=== PATIENT | male | born 1960 | race Caucasian/White ===

== ENCOUNTER 2016-11-14 22:09 | Emergency (ER) | payer BC, MEDICAID ==
[~2016-11-14] VITALS: Ht 180.3 cm; Wt 91.2 kg
[2016-11-14 23:41] LABS: BASOPHILS # (AUTO) 0.1 10^3/uL (0.0-0.1); BASOPHILS % (AUTO) 1 % (0-10); EOSINOPHILS # (AUTO) 0.4 10^3/uL (0.0-0.3); EOSINOPHILS % (AUTO) 4 % (0-10); LYMPHOCYTES # (AUTO) 1.7 X 10^3 (1.0-4.0); LYMPHOCYTES % (AUTO) 17 % (12-44); MEAN CORPUSCULAR HEMOGLOBIN 32 PG (25-34); MEAN CORPUSCULAR HGB CONC 35 G/DL (32-36); MEAN CORPUSCULAR VOLUME 92 FL (80-99); MEAN PLATELET VOLUME 11.6 FL (7.4-10.4); MONOCYTES # (AUTO) 0.7 X 10^3 (0.0-1.0); MONOCYTES % (AUTO) 7 % (0-12); NEUTROPHILS # (AUTO) 6.9 X 10^3 (1.8-7.8); NEUTROPHILS % (AUTO) 72 % (42-75); PLATELET COUNT 169 10^3/uL (130-400); RED BLOOD COUNT 5.08 10^6/uL (4.35-5.85); RED CELL DISTRIBUTION WIDTH 13.1 % (10.0-14.5); WHITE BLOOD COUNT 9.7 10^3/uL (4.3-11.0)
[2016-11-15 00:06] LABS: ALBUMIN 4.1 GM/DL (3.2-4.5); BILIRUBIN,TOTAL 0.3 MG/DL (0.1-1.0); CALCIUM 9.4 MG/DL (8.5-10.1); CREATININE SERUM 1.39 MG/DL (0.60-1.30); POTASSIUM 3.9 MMOL/L (3.6-5.0)
[2016-11-15] MEDS ORDERED: OMEP20TA7 PO (02:24)
--- NOTE | 2016-11-15 02:24 | ED GI ---
General Chief Complaint: Abdominal/GI Problems Stated Complaint: BLOOD IN STOOL/STOMACH PAIN Nursing Triage Note: PT REPORTS HAVING BRIGHT RED BLOOD IN STOOL THAT STARTED TONIGHT. PT HAVING UPPER ABD BURNING FOR WEEKS. PT STATES HE BATTLES OFF AND ON EPIGASTRIC BURNING. DENIES ETOH USAGE NOT ON RX MEDS. USES PRN IBUPROFEN. Sepsis Screen: No Definite Risk Source of Information: Patient Exam Limitations: No Limitations Allergies and Home Medications Allergies Uncoded Allergies: PENICILLIN (Adverse Reaction, Mild, RASH, 11/14/16) Home Medications No Active Prescriptions or Reported Meds Past [id number]-Vhwpih Hx Patient Social History Alcohol Use: Past History Recreational Drug Use: No Smoking Status: Current Everyday Smoker Type Used: Cigarettes 2nd Hand Smoke Exposure: Yes Recent Foreign Travel: No Contact w/Someone Who Travel: No Recent Infectious Disease Expo: No Recent Hopitalizations: No Seasonal Allergies Seasonal Allergies: No Surgeries History of Surgeries: No Respiratory History of Respiratory Disorde: No Cardiovascular History of Cardiac Disorders: No Neurological History of Neurological Disord: No Genitourinary History of Genitourinary Disor: No Gastrointestinal History of Gastrointestinal Di: No Musculoskeletal History of Musculoskeletal Dis: No Endocrine History of Endocrine Disorders: No HEENT History of HEENT Disorders: No Cancer History of Cancer: No Psychosocial History of Psychiatric Problem: No Integumentary History of Skin or Integumenta: No Blood Transfusions History of Blood Disorders: No Physical Exam Vital Signs VS - Last 72 Hours, by Label 11/14/16 22:56 Temp 98.6 Pulse 112 Resp 16 B/P (MAP) 151/90 Pulse Ox 94 O2 Delivery Room Air Capillary Refill : Less Than 3 Seconds Progress/Results/Core Measures Results/Orders Lab Results Laboratory Tests Test 11/14/16 23:25 Range/Units White Blood Count 9.7 4.3-11.0 10^3/uL Red Blood Count 5.08 4.35-5.85 10^6/uL Hemoglobin 16.1 13.3-17.7 G/DL Hematocrit 47 40-54 % Mean Corpuscular Volume 92 80-99 FL Mean Corpuscular Hemoglobin 32 25-34 PG Mean Corpuscular Hemoglobin Concent 35 32-36 G/DL Red Cell Distribution Width 13.1 10.0-14.5 % Platelet Count 169 130-400 10^3/uL Mean Platelet Volume 11.6 H 7.4-10.4 FL Neutrophils (%) (Auto) 72 42-75 % Lymphocytes (%) (Auto) 17 12-44 % Monocytes (%) (Auto) 7 0-12 % Eosinophils (%) (Auto) 4 0-10 % Basophils (%) (Auto) 1 0-10 % Neutrophils # (Auto) 6.9 1.8-7.8 X 10^3 Lymphocytes # (Auto) 1.7 1.0-4.0 X 10^3 Monocytes # (Auto) 0.7 0.0-1.0 X 10^3 Eosinophils # (Auto) 0.4 H 0.0-0.3 10^3/uL Basophils # (Auto) 0.1 0.0-0.1 10^3/uL Prothrombin Time 13.0 12.2-14.7 SEC INR Comment 1.0 0.8-1.4 Activated Partial Thromboplast Time 30 24-35 SEC Sodium Level 144 135-145 MMOL/L Potassium Level 3.9 3.6-5.0 MMOL/L Chloride Level 108 H 98-107 MMOL/L Carbon Dioxide Level 25 21-32 MMOL/L Anion Gap 11 5-14 MMOL/L Blood Urea Nitrogen 12 7-18 MG/DL Creatinine 1.39 H 0.60-1.30 MG/DL Estimat Glomerular Filtration Rate 53 BUN/Creatinine Ratio 9 Glucose Level 126 H 70-105 MG/DL Calcium Level 9.4 8.5-10.1 MG/DL Total Bilirubin 0.3 0.1-1.0 MG/DL Aspartate Amino Transf (AST/SGOT) 18 5-34 U/L Alanine Aminotransferase (ALT/SGPT) 27 0-55 U/L Alkaline Phosphatase 77 40-136 U/L Total Protein 7.0 6.4-8.2 GM/DL Albumin 4.1 3.2-4.5 GM/DL My Orders Orders - SASHA OLEA MD Cbc With Automated Diff (11/14/16 22:23) Comprehensive Metabolic Panel (11/14/16 22:23) Protime With Inr (11/14/16 22:23) Partial Thromboplastin Time (11/14/16 22:23) Saline Lock/Iv-Start (11/14/16 22:23) Fecal Occult Bedside (11/14/16 22:23) Vital Signs/I&O Vital Sign - Last 12Hours 11/14/16 22:56 Temp 98.6 Pulse 112 Resp 16 B/P (MAP) 151/90 Pulse Ox 94 O2 Delivery Room Air Blood Pressure Mean: 110 Progress Note : Progress Note Hemoccult was negative. Patient was offered CT scan if desired. Patient declined. The most important next step for him is to schedule endoscopy. He will discuss possible CT imaging with his primary care provider when he schedules the colonoscopy/EGD. Departure Impression Impression: Primary Impression: Hematochezia Additional Impressions: Upper abdominal pain External hemorrhoid Disposition: HOME, SELF-CARE Condition: Improved Departure-Patient Inst. Decision time for Depature: 02:20 Referrals: GUSTAVO FRANCOIS DO (PCP/Family) Primary Care Physician Patient Instructions: Gastrointestinal Bleeding, Acute Abdomen (Belly Pain), Adult (DC) Add. Discharge Instructions: For your up lower abdominal pain start taking an antacid such as omeprazole 20 mg twice daily. Avoid the following: Eating large meals, eating close to bedtime, alcohol, tobacco, caffeine, carbonation, chocolate, spicy foods, citrus fruits and juices, tomato products, mints, fatty or greasy foods, NSAID medications such as ibuprofen or naproxen, or anything else you know irritate your stomach. You may take Tylenol (acetaminophen) up to 1000 mg every 6 hours as needed for pain. Please see your primary care provider soon as possible for further evaluation of your bleeding. Specifically, request scheduling of a colonoscopy and EGD. If pain persists, CT imaging may also be appropriate. All discharge instructions reviewed with patient and/or family. Voiced understanding. Scripts Omeprazole (Omeprazole) 20 Mg Tablet. 20 MG PO BID, #60 TAB Prov: SASHA OLEA MD 11/15/16 Copy Copies To 1: GUSTAVO FRANCOIS JOSHUA T MD Nov 15, 2016 02:24
[2016-11-15 02:33] VITALS: BP 151/90
== END 2016-11-15 02:33 | disposition home or self-care (01) ==
LOC: EDUNIT# 22:09 → ER 22:11
DX: K64.4 Residual hemorrhoidal skin tags (principal); F17.210 Nicotine dependence, cigarettes, uncomplicated
CPT/HCPCS: 36415; 80053; 85025; 85610; 85730

== ENCOUNTER → 2017-12-07 | Outpatient (CLI) | payer BC, MEDICAID ==
[~2017-12-07] MED LIST: OMEP20TA7 PO
--- NOTE | 2017-12-07 12:48 | Diagnostic Imaging Report ---
INDICATION: Tobaccoism, shortness of breath, COPD. EXAMINATION: PA and lateral chest. FINDINGS: There are emphysematous changes of the lungs. There are no infiltrates, effusions, or pneumothoraces. The heart size and pulmonary vascularity are normal. IMPRESSION: Emphysema. No acute abnormalities. Dictated by: Dictated on workstation # [id number]
== END ==
LOC: RAD 12:11
PROVIDERS: ATTEND Family Medicine
DX: J43.9 Emphysema, unspecified (principal); Z87.891 Personal history of nicotine dependence
CPT/HCPCS: 71046

== ENCOUNTER → 2017-12-16 | Outpatient (CLI) | payer BC, MEDICAID ==
[~2017-12-16] VITALS: Ht 180.3 cm; Wt 89.8 kg
[~2017-12-16] MED LIST changes: +CATHETER FLUSH 10 ML SYR IV PRN; +REGADENOSON 0.4 MG/5 ML SYR (LEXISCAN) IV ONE
[2017-12-16 09:22] VITALS: BP 126/76
[2017-12-16 09:23] VITALS: BP 134/91
--- NOTE | 2017-12-16 18:21 | STRESS TEST ---
DATE OF SERVICE: 12/16/2017 LEXISCAN MYOVIEW STRESS TEST REPORT REFERRING PHYSICIAN: Dr. Jiang. Baseline heart rate is 98, baseline blood pressure 126/77. Baseline EKG is sinus rhythm with no ischemic changes. In summary, the patient was injected with 10.41 mCi of technetium-99 Myoview and the resting images were obtained. Then, the patient received 0.4 mg of Lexiscan followed by 30.5 mCi of technetium-99 Myoview. Throughout the test, there were no EKG changes. The resting and stress images were reviewed and compared in the short axis, horizontal long axis, and vertical long axis views. Review of the images showed diaphragmatic attenuation with fixed defect involving the mid to apical inferior wall and inferolateral wall with no significant reversibility. SSS is 9, SDS 1, TID value 1.14. On the gated images, the left ventricle appeared to be normal size with normal contractility. Calculated ejection fraction 58%. CONCLUSION: 1. The patient tolerated Lexiscan well. 2. Diaphragmatic attenuation with fixed defect involving the mid to apical inferior wall and inferolateral wall. 3. Normal left ventricular size with normal contractility. Calculated ejection fraction 58%. 4. No significant ischemia was noted on this study. Job ID: [id number] DocumentID: [id number] Dictated Date: 12/16/2017 15:22:49 [employer] Date: 12/16/2017 18:20:42 Dictated By: TED MUNGUIA MD
== END ==
LOC: CARD 07:14
PROVIDERS: ATTEND Family Medicine
DX: R07.9 Chest pain, unspecified (principal); I10 Essential (primary) hypertension
CPT/HCPCS: 78452; 93017